=== PATIENT | female | born 1985 | race Caucasian/White ===

== ENCOUNTER 2016-12-21 09:57 | Emergency (ER) | payer OTHER ==
[2016-12-21 10:36] LABS: HEMOGLOBIN 14.3 gm/dl (12.3-15.3); RED BLOOD COUNT 4.39 M/UL (4.00-5.10); WHITE BLOOD COUNT 13.8 K/UL (4.5-11.0)
[2016-12-21 10:53] LABS: BUN/CREATININE RATIO 15 (0-10)
== END 2016-12-21 17:15 | disposition home or self-care (01) ==
LOC: ER1 09:57
PROVIDERS: Emergency Medicine
DX: R07.9 Chest pain, unspecified (principal); N39.0 Urinary tract infection, site not specified; N13.30 Unspecified hydronephrosis; F41.9 Anxiety disorder, unspecified; F17.200 Nicotine dependence, unspecified, uncomplicated; Z88.0 Allergy status to penicillin; Z88.1 Allergy status to other antibiotic agents; Z88.8 Allergy status to other drugs, medicaments and biological substances; Z79.899 Other long term (current) drug therapy
CPT/HCPCS: 36415; 71010; 80053; 81001; 82550; 82553; 83874; 84484; 84703; 85025; 85379; 87040; 87077; 87086; 87186; 93005; 99284; J7030; J7050; Q9963

== ENCOUNTER → 2022-06-15 | Outpatient (CLI) | payer OTHER ==
[~2022-06-15] MED LIST: ZOFRAN4 MG PO
== END ==
LOC: EMI 11:05
DX: G43.109 Migraine with aura, not intractable, without status migrainosus (principal)
CPT/HCPCS: 70551